=== PATIENT | male | born 1965 | race Caucasian/White ===

== ENCOUNTER 2016-04-06 19:36 | Emergency (ER) | payer OTHER ==
[2016-04-06 19:41] VITALS: BP 130/85; PULSE 76; TEMP 98; BMI 26.6
[2016-04-06] MEDS ORDERED: IBUPROFEN 600 MG TABLET (FP) PO ONE ×2 (20:20)
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
== END 2016-04-06 20:49 | disposition home or self-care (01) ==
LOC: JER 19:36 → JERFT 19:36
DX: S39.012A Strain of muscle, fascia and tendon of lower back, initial encounter (principal); X58.XXXA Exposure to other specified factors, initial encounter; Y93.89 Activity, other specified; Y92.89 Other specified places as the place of occurrence of the external cause; Y99.0 Civilian activity done for income or pay
CPT/HCPCS: 99281-25